=== PATIENT | female | born 1985 | race Caucasian/White ===

== ENCOUNTER 2016-06-29 07:39 | Outpatient (CLI) | payer OTHER ==
[~2016-06-29 07:39] MED LIST: AZITHROMYCIN250 MG1 PO; BENADRYL25 MG PO; ENDOCET 5-3251 EACH PO; IBUPROFEN800 MG PO; MECLIZINE HCL25 MG PO; MOTRIN800 MG PO; Motrin PO; NATALCARE RX1 TABLET PO; NO MEDS; PRENATAL TABLE1 EAC3 PO; PROAIR HFA8.5 GM IH; Percocet 5/325,Endoc PO; SUMATRIPTAN SUC50 MG PO; TUMS500 MG PO; TYLENOL EXTRA500 MG PO; VITAMIN B-6100 MG PO; ZITHROMAX Z-PA250 MG PO; ZOFRAN4 MG PO
== END 2016-06-30 11:59 | disposition home or self-care (01) ==
LOC: NUC 07:39
DX: E04.1 Nontoxic single thyroid nodule (principal)
CPT/HCPCS: 78014; 78999; A9512; A9531

== ENCOUNTER 2017-10-18 12:49 | Emergency (ER) | payer OTHER ==
[~2017-10-18] VITALS: Ht 170.2 cm; Wt 61.5 kg
[2017-10-18 14:02] LABS: APPEARANCE SL.HAZY ((CLEAR)); BILIRUBIN NEGATIVE; BLOOD SMALL; COLOR YELLOW ((YELLOW)); GLUCOSE (STRIP) NEGATIVE; KETONES NEGATIVE; LEUKOCYTES MODERATE; NITRITE NEGATIVE; PROTEIN (STRIP) NEGATIVE
[2017-10-18 14:07] LABS: BACTERIA RARE /HPF; EPITHELIAL CELLS 2+ /HPF; MUCUS 1+ /LPF; UCUL ADDED? YES; WHITE BLOOD CELLS 20-30 /HPF (0-5)
[2017-10-18 14:12] LABS: HEMATOCRIT 44.7 % (36.0-46.0); HEMOGLOBIN 14.6 G/DL (11.9-15.5); MCH 28.9 PG (29.0-34.0); MCHC 32.7 G/DL (30.0-36.0); MCV 88.5 FL (83-99); PLATELET COUNT 328 K/uL (156-360); RBC DIS.WIDTH-CV 12.4 % (11.8-14.6); RBC DIS.WIDTH-SD 40.4 % (39-53); RED BLOOD COUNT 5.05 M/uL (3.80-5.20); WHITE BLOOD COUNT 8.3 K/uL (4.1-10.2)
[2017-10-18 14:23] LABS: ALBUMIN 4.3 g/dL (3.2-4.8)
[2017-10-18 14:24] LABS: CHLORIDE 106 mEq/L (99-109); POTASSIUM 4.1 mEq/L (3.7-5.4); SODIUM 141 mEq/L (136-147)
[2017-10-18 14:26] LABS: GLUCOSE 86 mg/dL (70-99); TOTAL PROTEIN 6.8 g/dL (6.4-8.3)
[2017-10-18 14:28] LABS: TOTAL BILIRUBIN 0.7 mg/dL (0.0-1.0)
[2017-10-18 14:29] LABS: ALKALINE PHOSPHATASE 70 IU/L (3-129)
[2017-10-18 14:30] LABS: CREATININE 0.8 mg/dL (0.6-1.3); GFR ESTIMATE (CALCULATED) > 59 mL/min/
[2017-10-18 14:31] LABS: AST (GOT) 12 IU/L (2-34); UREA NITROGEN (BUN) 10 mg/dL (9-23)
[2017-10-18 14:33] LABS: ALT (GPT) 13 IU/L (3-49)
[2017-10-18 14:39] LABS: QUANTITATIVE HCG < 4.0 MIU/ML
[2017-10-18] MEDS ORDERED: CIPRO500 MG PO (16:09)
[2017-10-18] MEDS ORDERED: ZOFRAN4 MG PO (16:11)
[2017-10-18 17:21] VITALS: BP 148/90
== END 2017-10-18 17:21 | disposition home or self-care (01) ==
LOC: EME 12:49
DX: N39.0 Urinary tract infection, site not specified (principal); R11.2 Nausea with vomiting, unspecified; R19.7 Diarrhea, unspecified; J45.909 Unspecified asthma, uncomplicated; F32.9 Major depressive disorder, single episode, unspecified; Z87.891 Personal history of nicotine dependence; Z88.6 Allergy status to analgesic agent; Z91.041 Radiographic dye allergy status; Z91.040 Latex allergy status
CPT/HCPCS: 80053; 81003; 84702; 85027; 87086; 99281; 99284; J1885

== ENCOUNTER 2018-02-05 02:26 | Emergency (ER) | payer OTHER ==
[~2018-02-05] VITALS: Ht 170.2 cm; Wt 57.7 kg
[~2018-02-05 02:26] MED LIST changes: +CIPRO500 MG PO
[2018-02-05 05:28] LABS: ALBUMIN 3.4 g/dL (3.2-4.8); CHLORIDE 106 mEq/L (99-109); POTASSIUM 3.9 mEq/L (3.7-5.4); SODIUM 139 mEq/L (136-147)
[2018-02-05 05:30] LABS: GLUCOSE 120 mg/dL (70-99)
[2018-02-05 05:31] LABS: TOTAL PROTEIN 6.3 g/dL (6.4-8.3)
[2018-02-05 05:32] LABS: TOTAL BILIRUBIN 0.2 mg/dL (0.0-1.0)
[2018-02-05 05:34] LABS: ALKALINE PHOSPHATASE 76 IU/L (3-129); CREATININE 0.8 mg/dL (0.6-1.3); GFR ESTIMATE (CALCULATED) > 59 mL/min/; HEMATOCRIT 44.2 % (36.0-46.0); HEMOGLOBIN 14.4 G/DL (11.9-15.5); MCH 28.8 PG (29.0-34.0); MCHC 32.6 G/DL (30.0-36.0); MCV 88.4 FL (83-99); PLATELET COUNT 388 K/uL (156-360); RBC DIS.WIDTH-CV 12.5 % (11.8-14.6); RBC DIS.WIDTH-SD 41.1 % (39-53); WHITE BLOOD COUNT 7.2 K/uL (4.1-10.2)
[2018-02-05 05:35] LABS: UREA NITROGEN (BUN) 15 mg/dL (9-23)
[2018-02-05 05:36] LABS: AST (GOT) 13 IU/L (2-34)
[2018-02-05 05:37] LABS: ALT (GPT) 17 IU/L (3-49)
[2018-02-05 08:06] VITALS: BP 114/74
== END 2018-02-05 08:06 | disposition designated cancer center or children's hospital, planned readmission (85) ==
LOC: EME 02:26
PROVIDERS: Emergency Medicine
DX: T25.322A Burn of third degree of left foot, initial encounter (principal); T21.24XA Burn of second degree of lower back, initial encounter; L08.9 Local infection of the skin and subcutaneous tissue, unspecified; J45.909 Unspecified asthma, uncomplicated; G43.909 Migraine, unspecified, not intractable, without status migrainosus; F32.9 Major depressive disorder, single episode, unspecified; Z87.891 Personal history of nicotine dependence; Z88.6 Allergy status to analgesic agent; Z91.040 Latex allergy status; Z91.041 Radiographic dye allergy status
CPT/HCPCS: 80053; 83605; 85027; 87040; 99281; 99285; J0690; J2270